=== PATIENT | female | born 1995 ===

== ENCOUNTER → 2025-09-26 06:24 | Day surgery (SDC) | payer BC, SELFPAY | LOC: GI 06:24 | PROVIDERS: ATTENDING PHYSICIAN Student in an Organized Health Care Education/Training Program | DX: K57.30 Diverticulosis of large intestine without perforation or abscess without bleeding (principal); R19.4 Change in bowel habit; R10.84 Generalized abdominal pain; R11.2 Nausea with vomiting, unspecified | CPT/HCPCS: 45380; 43239; 88305; 88342 ==